=== PATIENT | male | born 1990 | race Caucasian/White ===

== ENCOUNTER 2016-08-21 09:30 | Emergency (ER) | payer BC ==
[~2016-08-21] VITALS: Ht 172.7 cm; Wt 79.0 kg
--- OUTSIDE RECORDS SUMMARY | 2016-08-21 09:33 | XMS REPORT ---
Author Author GENERATED, SYSTEM Organization Unknown Address Unknown Phone Unavailable Care Team Providers Care Asset Protection Assistant Name Role Phone UNASSIGNED DOCTOR , DOCTOR PP [phone] Reason For Visit Chief Complaint CUT LIP Social History Functional Status Vital Signs Results Problems Encounter Diagnosis No relevant problems exist. Encounters Encounter Diagnosis No relevant problems exist. Plan of Care Procedures No relevant procedures performed. Immunizations No immunizations administered or ordered. Hospital Course Hospital Discharge Instructions Allergies, Adverse Reactions, Alerts Latex Allergy has not been assessed.IV Contrast Allergy has not been assessed. Medication Medication reconciliation has not been performed.
--- OUTSIDE RECORDS SUMMARY | 2016-08-21 09:35 | XMS REPORT ---
Author Author GENERATED, SYSTEM Organization Unknown Address Unknown Phone Unavailable Care Team Providers Care Frame Table Operator Name Role Phone UNASSIGNED DOCTOR , DOCTOR PP [phone] Reason For Visit Chief Complaint CUT LIP [...]
[2016-08-21] MEDS ORDERED: SODIUM CHLORIDE FLUSH 10 ML SYR IV PRN (09:40)
[2016-08-21] MEDS ORDERED: ONDANSETRON 2 MG/ML (Z0FRAN) 2 ML VIAL IV ONE (09:40)
[2016-08-21] MEDS ORDERED: AMPH20TA2 PO (09:51)
[2016-08-21] MEDS ORDERED: AMPH30TA2 PO (09:51)
[2016-08-21] MEDS ORDERED: ONDAN4ODT PO (09:52)
[2016-08-21 10:00] VITALS: BP 126/61
== END 2016-08-21 10:45 | disposition home or self-care (01) ==
LOC: ED 09:31
DX: A08.4 Viral intestinal infection, unspecified (principal)
CPT/HCPCS: 96361; 96374; 99283; J2405; J7030